=== PATIENT | female | born 1985 | race Caucasian/White ===

== ENCOUNTER 2022-06-24 12:13 | Emergency (ER) | payer OTHER, SELFPAY ==
--- NOTE | ~2022-06-24 | XR_ITS ---
EXAMINATION: XR FOOT, LEFT CLINICAL INFORMATION: Lateral foot pain status post injury COMPARISON: None TECHNIQUE: AP, lateral, and oblique views of the left foot. FINDINGS: There is a nondisplaced obliquely oriented fracture through the base of the fifth metatarsal. This extends to the medial articular margin proximally. No other fracture seen. Otherwise normal mineralization and alignment. XR/XR foot LT min 3V IMPRESSION: Nondisplaced obliquely oriented fracture through the base of the fifth metatarsal extending to the medial articular margin.
--- NOTE | 2022-06-24 12:39 | ED_ITS ---
HPI - Extremity Injury (Lower) General Chief Complaint: Extremity Injury, Lower <Carla Mccall CNP - Last Filed: 06/24/22 12:45> Stated Complaint: l foot inj <Carla Mccall CNP - Last Filed: 06/24/22 12:45> Time Seen by Provider: 06/24/22 15:57 <Carla Mccall CNP - Last Filed: 06/24/22 12:45> History of Present Illness HPI Narrative: Patient complains of left foot injury when she slipped in the shower and twisted her foot and heard a crack, she has been walking on it but with a limb for the last 2 days, she did not fall and there is no other injury <ZAIRE Gamino - Last Filed: 07/17/22 09:38> Related Data Home Medications: Home Medications Medication Instructions Recorded Confirmed No Known Home Meds 07/05/22 07/05/22 <Carla Mccall CNP - Last Filed: 06/24/22 12:45> Allergies/Adverse Reactions: Allergies Allergy/AdvReac Type Severity Reaction Status Date / Time No Known Allergies Allergy Verified 07/05/22 10:35 <Carla Mccall CNP - Last Filed: 06/24/22 12:45> Review of Systems Review of Systems: positive for left foot pain and injury Negatives are no headache no head injury no neck pain no neck injury no numbness weakness or tingling no chest pain no fainting no syncope no loss of consciousness no other extremity injury no back injury no radiating pain no laceration <ZAIRE Gamino - Last Filed: 07/17/22 09:38> Yes all other systems are reviewed and are negative <ZAIRE Gamino - Last Filed: 07/17/22 09:38> PMFSH Past Medical History Source: nursing notes reviewed <ZAIRE Gamino - Last Filed: 07/17/22 09:38> Medical History: Medical History (Updated 07/05/22 @ 10:58 by Carmencita Turner) Migraine <Carla Mccall CNP - Last Filed: 06/24/22 12:45> Social History Social History: Social History Current occupational status: employed 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 <Carla Mccall CNP - Last Filed: 06/24/22 12:45> Physical Exam Vital Signs: Vital Signs: Last Vital Signs Temp 97.6 F 06/24/22 12:52 Pulse 80 06/24/22 12:52 Resp 18 06/24/22 12:52 BP 118/70 06/24/22 12:52 Pulse Ox 100 06/24/22 12:52 O2 Del Method 06/24/22 12:52 BMI result Body Mass Index 17.7 <Carla Mccall CNP - Last Filed: 06/24/22 12:45> Vital Signs: Last Vital Signs Temp 97.6 F 06/24/22 12:52 Pulse 80 06/24/22 12:52 Resp 18 06/24/22 12:52 BP 118/70 06/24/22 12:52 Pulse Ox 100 06/24/22 12:52 O2 Del Method 06/24/22 12:52 BMI result Body Mass Index 17.7 <ZAIRE Gamino - Last Filed: 07/17/22 09:38> general appearance no distress The head is normocephalic atraumatic Neck supple nontender Respiratory no distress Extremities full range of motion x4 included left foot which has tenderness and mild swelling over the mid left 5th metatarsal, there is full range of motion in the joints, sensation and motor intact, skin intact <ZAIRE Gamino - Last Filed: 07/17/22 09:38> Course Course Course Narrative: RME: Patient is a 37-year-old female who presents emergency department for evaluation of traumatic left foot pain. Pain is localized to the lateral foot, over the 4th and 5th metatarsal. Reports 2 nights ago twisting her foot while in the bathroom when heard audible crack. She has been having ongoing pain since then that is progressively worsening and worse with weight-bearing. Denies numbness, tingling, cold sensation to the foot. PE: No obvious deformity, 2+ DP/PT pulses present, sensation intact Plan: XR to evaluate for fracture. Ice placed. <Carla Mccall CNP - Last Filed: 06/24/22 12:45> RME: Patient is a 37-year-old female who presents emergency department for evaluation of traumatic left foot pain. Pain is localized to the lateral foot, over the 4th and 5th metatarsal. Reports 2 nights ago twisting her foot while in the bathroom when heard audible crack. She has been having ongoing pain since then that is progressively worsening and worse with weight-bearing. Denies numbness, tingling, cold sensation to the foot. PE: No obvious deformity, 2+ DP/PT pulses present, sensation intact Plan: XR to evaluate for fracture. Ice placed. Patient who has been walking on her fracture for 2 days with only mild discomfort is informed that she actually does had a fracture and should be immobilized and she is given a walking boot and crutches and will follow with orthopedics <ZAIRE Gamino - Last Filed: 07/17/22 09:38> Discharge Plan Discharge Clinical Impression: Foot fracture, left <Carla Mccall CNP - Last Filed: 06/24/22 12:45> Patient Disposition: Home, Self-Care <Carla Mccall CNP - Last Filed: 06/24/22 12:45> Additional Instructions: wear boot to keep foot fracture immobilized Nonweightbearing as best possible Follow with orthopedist Return any concerns Apply ice, Motrin if needed <Carla Mccall CNP - Last Filed: 06/24/22 12:45> Prescriptions: No Action No Known Home Meds <Carla Mccall CNP - Last Filed: 06/24/22 12:45> Referrals: Ike Humphrey MD [Physician] - ( left 5th metatarsal fracture) ED Physician,Generic [Physician] - <Carla Mccall CNP - Last Filed: 06/24/22 12:45> Interventions: ED Discharge Assessment Last Done: 06/24/22 16:29 <Carla Mccall CNP - Last Filed: 06/24/22 12:45> Discharge Date/Time: 06/24/22 16:30 <Carla Mccall CNP - Last Filed: 06/24/22 12:45>
[2022-06-24 12:52] VITALS: BP 118/70; PULSE 80; RESP 18; TEMP 36.4; O2SAT 100; BMI 17.7
== END 2022-06-24 16:30 | disposition home or self-care (01) ==
PROVIDERS: Emergency Provider Emergency Medicine
DX: S92.902A Unspecified fracture of left foot, initial encounter for closed fracture (principal); W18.2XXA Fall in (into) shower or empty bathtub, initial encounter; Y93.E1 Activity, personal bathing and showering; Y92.002 Bathroom of unspecified non-institutional (private) residence as the place of occurrence of the external cause; Y99.9 Unspecified external cause status
CPT/HCPCS: 73630; 99282; 99283

== ENCOUNTER 2022-07-05 07:38 | Outpatient (REF) | payer SELFPAY ==
--- NOTE | ~2022-07-05 | XR_ITS ---
EXAMINATION: XR ANKLE, LEFT XR FOOT, LEFT CLINICAL INFORMATION: Pain; follow-up left fifth metatarsal base fracture. COMPARISON: Radiographs dated 06/24/2022. TECHNIQUE: AP, lateral, and mortise views of the left ankle. AP, lateral, and oblique views of the left foot. FINDINGS: There is stable alignment of an oblique, comminuted fracture of the base of the left fifth metatarsal. There is no dislocation. No left ankle joint effusion is seen. Boehler's angle is normal. There is no calcaneal spur. No significant soft tissue swelling, gas or foreign body is seen. XR/XR ankle LT min 3V IMPRESSION: There is stable alignment of an oblique, comminuted fracture of the base of the left fifth metatarsal. No significant new callus formation is seen.
--- NOTE | ~2022-07-05 | XR_ITS ---
EXAMINATION: XR ANKLE, LEFT XR FOOT, LEFT CLINICAL INFORMATION: Pain; follow-up left fifth metatarsal base fracture. COMPARISON: Radiographs dated 06/24/2022. TECHNIQUE: AP, lateral, and mortise views of the left ankle. AP, lateral, and oblique views of the left foot. FINDINGS: There is stable alignment of an oblique, comminuted fracture of the base of the left fifth metatarsal. There is no dislocation. No left ankle joint effusion is seen. Boehler's angle is normal. There is no calcaneal spur. No significant soft tissue swelling, gas or foreign body is seen. XR/XR foot LT min 3V IMPRESSION: There is stable alignment of an oblique, comminuted fracture of the base of the left fifth metatarsal. No significant new callus formation is seen.
== END 2022-07-05 07:39 | disposition home or self-care (01) ==
LOC: HO.HOSX 07:38
PROVIDERS: Visit Provider Physician Assistant
DX: S92.352A Displaced fracture of fifth metatarsal bone, left foot, initial encounter for closed fracture (principal)
CPT/HCPCS: 73610; 73630; 99202